=== PATIENT | male | born 1980 | race Two or more races ===

== ENCOUNTER → 2025-06-09 | Outpatient (CLI) | payer OTHER, SELFPAY ==
--- NOTE | 2025-06-09 | XR_ITS ---
EXAMINATION: Cervical spine, 5 views Technique: Cervical spine AP, AP odontoid, lateral, bilateral obliques, 5 views Exam date and time: 06/09/2025 at 100 p.m. INDICATION: Neck pain for 1 week, the pain radiates down the left shoulder no known trauma Findings the appearance of C1 and C2 is perfectly normal. There is moderate degenerative disc space narrowing at C4-C5 with moderate surrounding osteophytes. At C5-6 there is very minimal but definite disc space narrowing. On the oblique views, there are very large degenerative osteophytes involving the joint of Luschka on the left side at C4-5 very markedly indenting the left neuroforamen at this level. No other abnormalities are seen anywhere else on either side IMPRESSION: 1. There is moderate degenerative disc space narrowing at C4-5 with moderate surrounding osteophyte there are very large degenerative osteophytes involving the joint of Luschka at this level on the left side markedly narrowing the left neural foramen 2. There is extremely minimal disc space narrowing at C5-6. In all other respects the study is entirely normal
--- NOTE | 2025-06-09 12:25 | XR_ITS ---
Examination: Left shoulder, at, 06/09/2025 at 12:54 p.m., 3 views Technique: Shoulder AP internal rotation, AP external rotation, Y view shoulder, 3 views Clinical history: Left shoulder pain and limited range of motion for 1 week no known trauma Findings there is minimal chronic subluxation of the AC joint with the acromion process subluxed slightly inferiorly in relationship to the distal clavicle. The findings here appear chronic and there are small osteophytes at the distal end of the clavicle. The rotator space above the humeral head is normal. Glenohumeral joint appears normal. All of the bones visible on the study appear entirely normal, the visible portion of the left lung is clear and normal. IMPRESSION: 1. 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 2 in all other respects the radiographs of the left shoulder are entirely normal
== END | disposition home or self-care (01) ==
PROVIDERS: PCP Family Medicine; Referring Provider Physician Assistant; Visit Provider Physician Assistant
DX: M50.321 Other cervical disc degeneration at C4-C5 level (principal); M25.78 Osteophyte, vertebrae; M48.02 Spinal stenosis, cervical region; S43.112A Subluxation of left acromioclavicular joint, initial encounter; X58.XXXA Exposure to other specified factors, initial encounter
CPT/HCPCS: 72050; 73030